=== PATIENT | male | born 1940 | race Caucasian/White ===

== ENCOUNTER → 2017-03-24 | Outpatient (CLI) | payer MEDICARE, BC ==
[2017-03-24 07:53] LABS: BUN/CREATININE RATIO 19 (0-10)
== END ==
LOC: LAB 07:14
PROVIDERS: Internal Medicine
DX: R53.81 Other malaise (principal); R53.83 Other fatigue; E78.5 Hyperlipidemia, unspecified; J44.9 Chronic obstructive pulmonary disease, unspecified; R73.01 Impaired fasting glucose
CPT/HCPCS: 36415; 80048; 80061; 83036

== ENCOUNTER → 2022-06-12 | Outpatient (CLI) | payer MEDICARE, BC ==
[2022-06-12 08:44] LABS: HEMOGLOBIN 14.7 gm/dl (14.0-17.5); RED BLOOD COUNT 4.48 M/UL (4.20-5.50); WHITE BLOOD COUNT 6.4 K/UL (4.5-11.0)
[2022-06-12 09:03] LABS: BUN/CREATININE RATIO 18 (0-10)
== END ==
LOC: LAB 08:08
PROVIDERS: Internal Medicine Geriatric Medicine
DX: I10 Essential (primary) hypertension (principal); E78.5 Hyperlipidemia, unspecified; R73.9 Hyperglycemia, unspecified
CPT/HCPCS: 36415; 80053; 80061; 83036; 85027

== ENCOUNTER → 2022-07-08 | Outpatient (CLI) | payer MEDICARE, BC | LOC: LAB 14:26 | PROVIDERS: Internal Medicine Geriatric Medicine | DX: R17 Unspecified jaundice (principal); C61 Malignant neoplasm of prostate | CPT/HCPCS: 36415; 82247; 82248; 82977; 84153 ==